=== PATIENT | male | born 1995 | race Caucasian/White ===

== ENCOUNTER 2018-10-26 04:01 | Emergency (ER) | payer SELFPAY ==
[2018-10-26 04:10] VITALS: BP 147/70
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
[2018-10-26] MEDS ORDERED: HYDROCODONE/ACETAMINOPHEN 5-325 MG (6 TAB/ER DISP) PO PRN (05:45)
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
[2018-10-26] MEDS ORDERED: AMOXICILLIN TR/POT CLAVULANATE 500-125 MG TAB PO ONE (05:52)
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
== END 2018-10-26 06:15 | disposition home or self-care (01) ==
LOC: ER 04:01
DX: S02.2XXB Fracture of nasal bones, initial encounter for open fracture (principal); S02.32XB Fracture of orbital floor, left side, initial encounter for open fracture; Y04.2XXA Assault by strike against or bumped into by another person, initial encounter
CPT/HCPCS: 70450; 70486; 72125; 99284

== ENCOUNTER 2018-12-17 18:53 | Emergency (ER) | payer SELFPAY ==
[2018-12-17 19:23] VITALS: BP 133/59
== END 2018-12-17 20:10 | disposition left against medical advice (07) ==
LOC: ER 18:53
DX: Z53.21 Procedure and treatment not carried out due to patient leaving prior to being seen by health care provider (principal)

== ENCOUNTER 2019-07-13 21:00 | Emergency (ER) | payer SELFPAY ==
--- NOTE | 2019-07-13 21:58 | ER Document Report ---
ED Medical Screen (RME) - General Chief Complaint: STD Exposure Stated Complaint: POSSIBLE STD EXPOSURE Time Seen by Provider: 07/13/19 21:53 Primary Care Provider: VIOLETA BUI MD [Primary Care Provider] - Follow up as needed Mode of Arrival: Ambulatory Information source: Patient Notes: Patient presents requesting STD testing. Patient wants to be tested for e verything. Patient denies any symptoms. Patient states his girlfriend was seen recently and was tested and he needs to be as well. Patient does report a history of trichomonas 2 months ago. I have greeted and performed a rapid initial assessment of this patient. A comprehensive ED assessment and evaluation of the patient, analysis of test results and completion of the medical decision making process will be conducted by additional ED providers. TRAVEL OUTSIDE OF THE [place] IN LAST 30 DAYS: No - Related Data Allergies/Adverse Reactions: No Known Allergies Allergy (Verified 06/13/14 16:46) Past Medical History Renal/ Medical History: Denies: Hx Peritoneal Dialysis Musculoskeltal Medical History: Reports Hx Musculoskeletal Deformity - Cervical spine fusion/surgery Psychiatric Medical History: Reports: Hx Anxiety Past Surgical History: Reports: Other - Brain and cervical spine surgeries - Immunizations Immunizations up to date: Yes Hx Diphtheria, Pertussis, Tetanus Vaccination: Yes Physical Exam - Vital signs Vitals: Temp Pulse Resp BP Pulse Ox 97.8 F 92 18 140/70 H 98 07/13/19 21:08 07/13/19 21:08 07/13/19 21:08 07/13/19 21:08 07/13/19 21:08 - General General appearance: Appears well, Alert In distress: None Course - Vital Signs Vital signs: Temp Pulse Resp BP Pulse Ox 97.8 F 92 18 140/70 H 98 07/13/19 21:08 07/13/19 21:08 07/13/19 21:08 07/13/19 21:08 07/13/19 21:08 Doctor's Discharge - Discharge Referrals: VIOLETA BUI MD [Primary Care Provider] - Follow up as needed
[2019-07-13 22:41] LABS: APPEARANCE,URINE CLEAR; BILIRUBIN,URINE NEGATIVE (NEGATIVE); COLOR,URINE YELLOW; GLUCOSE, URINE NEGATIVE (NEGATIVE); KETONES,URINE NEGATIVE (NEGATIVE); LEUKOCYTE ESTERASE,URINE TRACE (NEGATIVE); NITRITE,URINE NEGATIVE (NEGATIVE); PROTEIN,URINE 30 mg/dL (NEGATIVE); URINE SPECIFIC GRAVITY 1.031
--- NOTE | 2019-07-13 23:16 | ER Document Report ---
HPI - HPI Time Seen by Provider: 07/13/19 21:53 Pain Level: 0 Context: Patient is a 24-year-old male that comes emergency department for chief complaint of concerns about possibly having an STD. He states he was diagnosed and treated for trichomonas 2 months ago, he states that he wants to be tested additionally because he is concerned he might still have something. He states he had some burning with urination a couple of days ago but he has not had any discharge, he has not had any symptoms since including abdominal pain, fever, rash. He denies any diagnosed medical history or daily medications. - REPRODUCTIVE Reproductive: DENIES: : Past Medical History - General Information source: Patient - Social History Smoking Status: Current Every Day Smoker Frequency of alcohol use: None Drug Abuse: None Lives with: Family Family History: Malignancy Patient has suicidal ideation: No Patient has homicidal ideation: No Renal/ Medical History: Denies: Hx Peritoneal Dialysis Musculoskeletal Medical History: Reports Hx Musculoskeletal Deformity - Cervical spine fusion/surgery Psychiatric Medical History: Reports: Hx Anxiety Past Surgical History: Reports: Other - Brain and cervical spine surgeries - Immunizations Immunizations up to date: Yes Hx Diphtheria, Pertussis, Tetanus Vaccination: Yes Vertical Provider Document - CONSTITUTIONAL General Appearance: WD/WN, No Apparent Distress - INFECTION CONTROL TRAVEL OUTSIDE OF THE [place] IN LAST 30 DAYS: No - HEENT HEENT: Atraumatic, Normocephalic - NECK Neck: Normal Inspection - RESPIRATORY Respiratory: Breath Sounds Normal, No Respiratory Distress - CARDIOVASCULAR Cardiovascular: Regular Rate, Regular Rhythm - GI/ABDOMEN Gastrointestinal: Abdomen Soft, Abdomen Non-Tender - REPRODUCTIVE Male Genitalia: Normal Inspection - BACK Back: Normal Inspection - MUSCULOSKELETAL/EXTREMETIES Musculoskeletal/Extremeties: MAEW, FROM, Non-Tender - NEURO Level of Consciousness: Awake, Alert, Appropriate Motor/Sensory: No Motor Deficit, No Sensory Deficit - DERM Integumentary: Warm, Dry, No Rash Course - Re-evaluation Re-evalutation: Patient asymptomatic now and he has not had no symptoms previously. He essentially wants routine testing. He is very clear about this. I did review labs from triage including pending RPR, negative HIV, pending gonorrhea and chlamydia. There are a few white blood cells in the urine but because patient does not have any symptoms after offering treatment and patient declining I did not press this any further. Patient be contacted for any positive result to be treated at that time if necessary. Discussed primary care follow-up, return precautions. Patient states understanding and agreement. Gonorrhea and Chlamydia are negative. - Vital Signs Vital signs: Temp Pulse Resp BP Pulse Ox 97.8 F 92 18 140/70 H 98 07/13/19 21:08 07/13/19 21:08 07/13/19 21:08 07/13/19 21:08 07/13/19 21:08 - Laboratory Laboratory results interpreted by me: 07/13/19 22:02 Urine Protein 30 H Urine Urobilinogen 2.0 H Ur Leukocyte Esterase TRACE H Discharge - Discharge Clinical Impression: Possible exposure to STD Condition: Stable Disposition: HOME, SELF-CARE Additional Instructions: Your initial test today is negative. You have pending results and you will be contacted for any positive results. Follow-up with primary care including the health department for additional testing and management. Return for any concerning symptoms including developing discharge, pain, fever, vomiting, or any other concerning symptoms.
[2019-07-13 23:50] VITALS: BP 136/80
[2019-07-14 00:27] LABS: CHLAM PCR NOT DETECTED (NOT DETECT)
== END 2019-07-14 00:10 | disposition home or self-care (01) ==
LOC: ER 21:00
DX: Z20.2 Contact with and (suspected) exposure to infections with a predominantly sexual mode of transmission (principal)
CPT/HCPCS: 36415; 81001; 86592; 86701; 87491; 87591; 99283